=== PATIENT | male | born 2000 | race Caucasian/White ===

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

== ENCOUNTER 2019-08-05 02:17 | Emergency (ER) | payer MEDICAID ==
[~2019-08-05] VITALS: Ht 177.8 cm; Wt 163.7 kg
[2019-08-05 02:26] VITALS: Ht 177.8 cm; Wt 163.7 kg
[2019-08-05 05:23] VITALS: BP 144/84
== END 2019-08-05 05:23 | disposition home or self-care (01) ==
LOC: ED 02:17
DX: R07.89 Other chest pain (principal); R10.9 Unspecified abdominal pain; Z88.0 Allergy status to penicillin

== ENCOUNTER 2019-11-15 12:05 | Emergency (ER) | payer MEDICAID ==
[~2019-11-15] VITALS: Ht 188 cm; Wt 75.3 kg
[2019-11-15 12:12] VITALS: BP 133/70; Ht 188 cm; Wt 75.3 kg
== END 2019-11-15 14:58 | disposition home or self-care (01) ==
LOC: ED 12:05
DX: J11.1 Influenza due to unidentified influenza virus with other respiratory manifestations (principal); R11.2 Nausea with vomiting, unspecified; Z88.0 Allergy status to penicillin
CPT/HCPCS: 87804

== ENCOUNTER 2020-07-24 19:33 | Emergency (ER) | payer MEDICAID, SELFPAY ==
[~2020-07-24] VITALS: Ht 170.2 cm; Wt 147.4 kg
[2020-07-24 19:35] VITALS: BP 134/92; Ht 170.2 cm; Wt 147.4 kg
== END 2020-07-24 21:24 | disposition home or self-care (01) ==
LOC: ED 19:33
DX: B34.9 Viral infection, unspecified (principal); R07.89 Other chest pain; Z20.828 Contact with and (suspected) exposure to other viral communicable diseases; Z88.0 Allergy status to penicillin
CPT/HCPCS: U0003